=== PATIENT | female | born 1975 | race Caucasian/White ===

== ENCOUNTER 2020-11-18 14:17 | Outpatient (REF) | payer BC, SELFPAY | END 2020-11-18 14:18 | disposition home or self-care (01) | LOC: HO.LAB 14:17 | PROVIDERS: Visit Provider Internal Medicine | DX: Z20.828 Contact with and (suspected) exposure to other viral communicable diseases (principal) | CPT/HCPCS: C9803; U0003 ==

== ENCOUNTER 2021-11-27 08:04 | Outpatient (REF) | payer BC, SELFPAY ==
[2021-11-27 09:05] LABS: Binax Internal Control QC Valid; Binax Now Covid-19 Ag Positive (Negative)
== END 2021-11-27 08:05 | disposition home or self-care (01) ==
LOC: HO.LAB 08:04
PROVIDERS: Visit Provider Internal Medicine
DX: Z20.822 Contact with and (suspected) exposure to COVID-19 (principal)
CPT/HCPCS: 36415; C9803

== ENCOUNTER 2024-08-03 13:35 | Outpatient (AMB) | payer BC, SELFPAY ==
[2024-08-03 13:43] VITALS: BP 124/84; PULSE 62; TEMP 36.6; O2SAT 98; BMI 32.1
--- NOTE | 2024-08-03 13:43 | AM.OFFWIN_ITS ---
Intake Vital Signs 08/03/24 13:43 Height 5 ft 3 in Weight 181 lb BMI 32.1 BP 124/84 Blood Pressure Location Rt brachial Position Sitting Pulse 62 Pulse Source Pulse Oximeter Temp 97.9 F Temp Source Oral Pulse Oximetry (%) 98 Oxygen Delivery Method Room Air Intake Visit Reasons: EP cough, mucus, cold symptoms Intake Note: pt c/o productive cough and cold symptoms, nausea, had fever but resolved. Started 1 week ago Patient Tobacco Use Status: Never used Tobacco Allergies acetaminophen [From TYLENOL] Allergy (Unknown, Verified 08/03/24 13:44) HIVES Sulfa (Sulfonamide Antibiotics) [SULFA (SULFONAMIDE ANTIBIOTICS)] Allergy (Unkn own, Verified 08/03/24 13:44) HIVES Do you need a note to return to daycare/school/sports/work: Yes HPI EP cough, mucus, cold symptoms HPI Details This is a 49-year-old female patient who presents to the walk-in clinic today with a one-week history of upper respiratory symptoms, nasal congestion, persistent, productive cough. States that she had a low-grade fever several days ago, however nothing since then. Denies any current fever or chills. Denies any shortness of breath, or GI symptoms aside from some mild nausea. Reports both children are sick, 1 with an upper respiratory illness, and 1 who has been vomiting. Has only been using Flonase at home. FOR[facility]LY [facility] Social History Patient Tobacco Use Status: Never used Tobacco Review of Systems Const All systems reviewed & are unremarkable except as noted in HPI and below Physical Exam Vital Signs: Last Vital Signs Temp 97.9 F 08/03/24 13:43 Pulse 62 08/03/24 13:43 BP 124/84 08/03/24 13:43 Pulse Ox 98 08/03/24 13:43 Oxygen Delivery Method Room Air 08/03/24 13:43 BMI result Body Mass Index 32.1 Const General: cooperative, comfortable and no acute distress Limitations: no limitations HEENT Head: Yes normal to inspection Ears: hearing grossly normal bilaterally, external ears normal and TM's normal bilaterally General nose exam: Normal external nose present and Normal nares present Face and sinus: Yes normal facial exam Mouth: Normal oral and palatal mucosa present Throat: Yes posterior oropharynx normal Neck Neck: Yes no lymphadenopathy Resp Effort & Inspection: normal respiratory effort, able to speak in complete sentences and Actively coughing Quality: productive Cardio Rate: regular rate Rhythm: regular rhythm Skin General skin exam: no rashes or lesions noted Extrem General: Yes capillary refill normal and Yes no clubbing, cyanosis or edema Psych Appearance: grossly normal Mental Status: mental status grossly normal Speech and movement: Normal speech and movement present Assessment & Plan Assessment & Plan (1) Upper respiratory infection: Code(s): J06.9 - Acute upper respiratory infection, unspecified Qualifiers: URI type: unspecified viral URI Qualified Code(s): J06.9 - Acute upper respiratory infection, unspecified Plan: Symptoms are consistent with viral upper respiratory illness. Her cough has been persistent and troublesome for her. We will start her on a short course of p.o. prednisone, and also benzonatate. We reviewed indications, use, possible side effects of these. She can try some [id number] cold/flu medication for symptom management otherwise. Advised rest, hydration, healthy food/vitamin intake. COVID/flu/RSV swab was obtained in the office today, and she will be notified of results once these are available. All questions were answered and patient verbalizes understanding and agrees to plan. Orders: Orders SARS-CoV2/FLU/RSV Today J06.9 - Acute upper respiratory infection, unspecified Medications: New benzonatate 100 mg PO BID 7 days 14 caps 0RF cough R05.9 - Cough, unspecified prednisone 20 mg PO BID 3 days 6 tabs 0RF J06.9 - Acute upper respiratory infection, unspecified Coding Level of Care Code Est Pt Level 4 (79148) Diagnoses Viral upper respiratory tract infection J06.9 URI type: unspecified viral URI
== END 2024-08-03 14:22 | disposition home or self-care (01) ==
PROVIDERS: Visit Provider Nurse Practitioner Family
DX: J06.9 Acute upper respiratory infection, unspecified (principal)
CPT/HCPCS: 99214

== ENCOUNTER 2024-08-03 13:52 | Outpatient (REF) | payer BC, SELFPAY ==
[2024-08-03 16:47] LABS: Influenza A PCR NEGATIVE (Negative); Influenza B PCR NEGATIVE (Negative); Resp Syncy Virus RNA Qual PCR NEGATIVE (Negative); SARS COV2 PCR INHOUSE NEGATIVE (Negative)
== END 2024-08-03 13:53 | disposition home or self-care (01) ==
LOC: HO.LAB 13:52
PROVIDERS: Visit Provider Nurse Practitioner Family
DX: J06.9 Acute upper respiratory infection, unspecified (principal)
CPT/HCPCS: 0241U

== ENCOUNTER 2024-09-19 10:37 | Outpatient (AMB) | payer BC, SELFPAY ==
--- NOTE | 2024-09-19 10:49 | MHC.OFFWIV ---
Intake Vital Signs 09/19/24 10:50 Height 5 ft 3 in Weight 181 lb BMI 32.1 BP 122/80 Blood Pressure Location Rt brachial Position Sitting Pulse 78 Pulse Source Pulse Oximeter Temp 97.8 F Temp Source Oral Pulse Oximetry (%) 98 Intake Visit Reasons: EP-persistent cough, cold & lt ear block Intake Note: pt is here for c.o cough and ongoing and doesnt go away Patient Tobacco Use Status: Never used Tobacco Allergies acetaminophen [From TYLENOL] Allergy (Unknown, Verified 09/19/24 10:50) HIVES Sulfa (Sulfonamide Antibiotics) [SULFA (SULFONAMIDE ANTIBIOTICS)] Allergy (Unknown, Verified 09/19/24 10:50) HIVES Do you need a note to return to daycare/school/sports/work: No HPI HPI Comments History of Present Illness Details Patient is a 49-year-old female complaining of a persistent productive cough for the last 10 days. She denies any fevers, sinus pain, headaches, ear pain or body aches. She states it is mostly just a cough that is lingering. She tells me her kids are also sick with a similar cough that will not go away. She did not test for COPD. She denies being a smoker or history of smoking, history of COPD but tells me she did have asthma as a kid. FOR[facility]LY [facility] Social History Patient Tobacco Use Status: Never used Tobacco Review of Systems Const All systems reviewed & are unremarkable except as noted in HPI and below Physical Exam Vital Signs: Last Vital Signs Temp 97.8 F 09/19/24 10:50 Pulse 78 09/19/24 10:50 BP 122/80 09/19/24 10:50 Pulse Ox 98 09/19/24 10:50 BMI result Body Mass Index 32.1 Const General: cooperative, healthy appearing, comfortable and no acute distress Orientation/consciousness: patient oriented x3 Limitations: no limitations HEENT Head: Yes normal to inspection Ears: hearing grossly normal bilaterally, external ears normal and TM's normal bilaterally General nose exam: Normal external nose present, Normal nares present and No nasal discharge present Face and sinus: Yes normal facial exam and Yes sinuses nontender Mouth: Normal oral and palatal mucosa present and moist mucous membranes Throat: Yes tonsils normal, Yes uvula midline and Yes posterior oropharynx abnormal (Erythema) Eyes General: appearance normal, both eyes and all related structures Neck Neck: Yes normal visual inspection Resp Effort & Inspection: normal respiratory effort, able to speak in complete sentences, Actively coughing, no respiratory distress, not tachypneic, no tripod positioning and no use of accessory muscles Auscultation: clear to auscultation bilaterally Cardio Rate: regular rate Rhythm: regular rhythm Heart sounds: normal S1 and S2 Skin General skin exam: no rashes or lesions noted Neuro General: patient oriented x3 Extrem General: Yes normal to inspection and Yes no clubbing, cyanosis or edema Assessment & Plan Assessment & Plan (1) Walking pneumonia: Code(s): J18.9 - Pneumonia, unspecified organism Plan: Vital signs stable, lungs are clear, HPI is most consistent with a walking pneumonia. I did send flu COVID and RSV testing but expecting those to be negative, I will send Angela Kearns for her cough and a [place] for the atypical pneumonia Plan See above Orders: Orders SARS-CoV2/FLU/RSV Today R09.89 - Other specified symptoms and signs involving the circulatory and respiratory systems Medications: New azithromycin For 250 mg dose pack: take 500 mg today (day 1), then 250 mg for 4 days (days 2-5) PO 6 tabs 0RF benzonatate 200 mg PO TID PRN 14 caps 0RF cough Coding Level of Care Code New Pt Level 3 (00234) Diagnoses Walking pneumonia J18.9
[2024-09-19 10:50] VITALS: BP 122/80; PULSE 78; TEMP 36.6; O2SAT 98; BMI 32.1
== END 2024-09-19 11:54 | disposition home or self-care (01) ==
PROVIDERS: Visit Provider Physician Assistant
DX: J18.9 Pneumonia, unspecified organism (principal)

== ENCOUNTER 2024-09-19 10:37 | Outpatient (REF) | payer BC, SELFPAY ==
[2024-09-19 14:31] LABS: Influenza A PCR NEGATIVE (Negative); Influenza B PCR NEGATIVE (Negative); Resp Syncy Virus RNA Qual PCR NEGATIVE (Negative); SARS COV2 PCR INHOUSE NEGATIVE (Negative)
== END 2024-09-19 10:38 | disposition home or self-care (01) ==
LOC: HO.LAB 10:37
PROVIDERS: Visit Provider Physician Assistant
DX: J18.9 Pneumonia, unspecified organism (principal); R09.89 Other specified symptoms and signs involving the circulatory and respiratory systems
CPT/HCPCS: 0241U